=== PATIENT | male | born 1985 | race American Indian/Alaskan Native ===

== ENCOUNTER 2019-03-11 08:44 | Emergency (ER) | payer SELFPAY ==
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
[2019-03-11 17:13] VITALS: BP 118/78
== END 2019-03-11 10:51 | disposition home or self-care (01) ==
LOC: ED 08:44
DX: M54.5 Low back pain (principal); V73.6XXA Passenger on bus injured in collision with car, pick-up truck or van in traffic accident, initial encounter; Y93.89 Activity, other specified; Y92.488 Other paved roadways as the place of occurrence of the external cause; Y99.8 Other external cause status
CPT/HCPCS: 72100; 99283